=== PATIENT | male | born 1980 | race Caucasian/White ===

== ENCOUNTER 2018-03-02 13:08 | Emergency (ER) | payer BC ==
[~2018-03-02] VITALS: Ht 182.9 cm; Wt 79.4 kg
[2018-03-02 13:08] VITALS: BP_SYST 144
[2018-03-02] MEDS ORDERED: LORazepam 2 MG/ML VIAL (FOR ER USE) IVP ONE (13:15)
[2018-03-02] MEDS ORDERED: NACL 0.9% 1,000 ML IV ONE (13:15)
[2018-03-02 13:41] LABS: BASOPHILS # (AUTO) 0.1 K/uL (0.0-0.2); BASOPHILS % (AUTO) 1.6 % (0.0-2.0); EOSINOPHILS # (AUTO) 0.2 K/uL (0.0-0.4); EOSINOPHILS % (AUTO) 3.5 % (0.0-4.0); HEMATOCRIT 43.6 % (36-54); HEMOGLOBIN 15.2 g/dL (14.0-18.0); LYMPHOCYTES # (AUTO) 1.3 K/uL (1.0-5.5); LYMPHOCYTES % (AUTO) 19.4 % (20.5-51.5); MEAN CORPUSCULAR HEMOGLOBIN 32 pg (27-31); MEAN CORPUSCULAR HGB CONC 35 % (32-36); MEAN CORPUSCULAR VOLUME 92 fL (79.0-98.0); MONOCYTES # (AUTO) 0.4 K/uL (0.0-1.0); MONOCYTES % (AUTO) 6.1 % (1.7-9.3); NEUTROPHILS # (AUTO) 4.7 K/uL (1.8-7.7); NEUTROPHILS % (AUTO) 69.4 % (40.0-70.0); PLATELET COUNT (AUTO) 203 K/uL (130-430); RED BLOOD CELL COUNT(AUTO) 4.74 MIL/uL (4.2-6.2); RED CELL DISTRIBUTION WIDTH 11.9 % (9.0-15.0); WHITE BLOOD COUNT (AUTO) 6.7 K/uL (4.8-10.8)
[2018-03-02 13:57] LABS: CALCIUM 9.4 mg/dL (8.4-11.0); CREATININE 1.05 mg/dL (0.55-1.30); POTASSIUM 3.3 mmol/L (3.5-5.1)
[2018-03-02 14:02] LABS: ALBUMIN 4.4 g/dL (3.4-4.8); TOTAL BILIRUBIN 0.6 mg/dL (0.0-1.0)
[2018-03-02 14:32] VITALS: BP_SYST 156
== END 2018-03-02 14:32 | disposition home or self-care (01) ==
LOC: SED 13:08
DX: T67.5XXA Heat exhaustion, unspecified, initial encounter (principal); F41.9 Anxiety disorder, unspecified; R03.0 Elevated blood-pressure reading, without diagnosis of hypertension; X58.XXXA Exposure to other specified factors, initial encounter; Y93.01 Activity, walking, marching and hiking; Y92.89 Other specified places as the place of occurrence of the external cause; Y99.0 Civilian activity done for income or pay
CPT/HCPCS: 36415; 80053; 85025; 96374; 99284; G0482; J2060; J7030

== ENCOUNTER 2021-04-11 10:52 | Day surgery (SDC) | payer BC, SELFPAY ==
[2021-04-08 09:41] LABS: BASOPHILS # (AUTO) 0.1 K/uL (0.0-0.2); BASOPHILS % (AUTO) 1.2 % (0.0-2.0); EOSINOPHILS # (AUTO) 0.4 K/uL (0.0-0.4); EOSINOPHILS % (AUTO) 6.5 % (0.0-4.0); HEMATOCRIT 41.3 % (36-54); HEMOGLOBIN 14.4 g/dL (14.0-18.0); LYMPHOCYTES # (AUTO) 1.1 K/uL (1.0-5.5); LYMPHOCYTES % (AUTO) 19.4 % (20.5-51.5); MEAN CORPUSCULAR HEMOGLOBIN 32 pg (27-31); MEAN CORPUSCULAR HGB CONC 35 % (32-36); MEAN CORPUSCULAR VOLUME 91 fL (79.0-98.0); MONOCYTES # (AUTO) 0.5 K/uL (0.0-1.0); MONOCYTES % (AUTO) 8.7 % (1.7-9.3); NEUTROPHILS # (AUTO) 3.7 K/uL (1.8-7.7); NEUTROPHILS % (AUTO) 64.2 % (40.0-70.0); PLATELET COUNT (AUTO) 193 K/uL (130-430); RED BLOOD CELL COUNT(AUTO) 4.55 MIL/uL (4.2-6.2); WHITE BLOOD COUNT (AUTO) 5.7 K/uL (4.8-10.8)
[2021-04-08 10:08] LABS: CALCIUM 9.3 mg/dL (8.4-11.0); CREATININE 1.03 mg/dL (0.55-1.30); POTASSIUM 4.2 mmol/L (3.5-5.1)
[2021-04-08 10:13] LABS: PROTHROMBIN TIME 10.1 SECS (9.5-12.5)
[2021-04-08 10:24] LABS: BILIRUBIN,URINE NEGATIVE (NEGATIVE); BLOOD, URINE NEGATIVE (NEGATIVE); CLARITY/URINE CLEAR (CLEAR); COLOR,URINE YELLOW (YELLOW); GLUCOSE,URINE NEGATIVE (NEGATIVE); KETONES,URINE NEGATIVE (NEGATIVE); LEUKOCYTE ESTERASE ,URINE NEGATIVE (NEGATIVE); NITRITE, URINE NEGATIVE (NEGATIVE); PROTEIN URINE NEGATIVE (NEGATIVE); UROBILINOGEN,URINE 0.2 (0.2-1.0)
[~2021-04-11] VITALS: Ht 182.9 cm; Wt 86.2 kg
[2021-04-11] MEDS ORDERED: ACETAMINOPHEN I.V. 1000 MG 100 ML IV ONE (13:17)
[2021-04-11] MEDS ORDERED: DEXAMETHASONE SOD PHOSPHATE 4 MG/ML VIAL IVP ONE (13:19)
[2021-04-11] MEDS ORDERED: LR 1,000 ML IV.SOLN IV ONE (13:19)
[2021-04-11] MEDS ORDERED: SEVOFLURANE 15 MIN GAS INH ONE (13:19)
[2021-04-11] MEDS ORDERED: fentaNYL CITRATE/PF 100 MCG/2 ML AMP IVP ONE (13:19)
[2021-04-11] MEDS ORDERED: PROPOFOL 200MG/ 20ML VIAL (DIPRIVAN) IV ONE (13:19)
[2021-04-11] MEDS ORDERED: LIDOCAINE PF 1%, 20 MG/2 ML AMP INJ ONE (13:19)
[2021-04-11] MEDS ORDERED: METOCLOPRAMIDE HCL 10 MG/2 ML VIAL IVP ONE (13:19)
[2021-04-11] MEDS ORDERED: MIDAZOLAM HCL 5 MG/ML VIAL (VERSED) IV ONE (13:19)
[2021-04-11] MEDS ORDERED: ePHEDrine sulfate 50 MG/ML VIAL IVP PRN (13:45)
[2021-04-11] MEDS ORDERED: LR 1,000 ML IV SCH (13:45)
[2021-04-11] MEDS ORDERED: ONDANSETRON HCL 4 MG/2 ML VIAL IVP PRN (13:45)
[2021-04-11] MEDS ORDERED: HYDROmorphone 2 MG/ML VIAL IVP PRN ×2 (13:45)
[2021-04-11] MEDS ORDERED: MEPERIDINE HCL/PF 25 MG/ML DISP.SYRIN IVP PRN (13:45)
[2021-04-11] MEDS ORDERED: HYDROmorphone 1 MG/ML INJ. CARTRIDGE IVP PRN (13:45)
[2021-04-11] MEDS ORDERED: HYDROmorphone 2 MG/ML VIAL ONE (14:36)
[2021-04-11 15:19] VITALS: BP_SYST 115
== END 2021-04-11 15:30 | disposition home or self-care (01) ==
LOC: SDS 10:52 → SMU 10:57 → SDS 15:30
PROVIDERS: ATTEND Orthopaedic Surgery
DX: S83.281A Other tear of lateral meniscus, current injury, right knee, initial encounter (principal); I10 Essential (primary) hypertension; Z20.822 Contact with and (suspected) exposure to COVID-19; X58.XXXA Exposure to other specified factors, initial encounter; Y93.89 Activity, other specified; Y92.89 Other specified places as the place of occurrence of the external cause; Y99.8 Other external cause status; Z79.01 Long term (current) use of anticoagulants; Z79.899 Other long term (current) drug therapy
CPT/HCPCS: 36415; 80048; 81003; 85025; 85610-TC; 85730-TC; 93005; J0131; J1100; J1170; J2001; J2250; J2704; J2765; J3010; J7120; U0003